=== PATIENT | male | born 1930 | race Caucasian/White ===

== ENCOUNTER 2017-11-03 15:52 | Outpatient (CLI) | END 2017-11-03 15:59 | disposition short-term general hospital (02) | LOC: AMBL 15:52 | PROVIDERS: ATTEND Emergency Medicine | DX: R11.2 Nausea with vomiting, unspecified (principal); R19.7 Diarrhea, unspecified; R53.1 Weakness; I48.91 Unspecified atrial fibrillation; Z86.73 Personal history of transient ischemic attack (TIA), and cerebral infarction without residual deficits; Z79.899 Other long term (current) drug therapy ==